=== PATIENT | female | born 1980 | race Caucasian/White ===

== ENCOUNTER 2016-11-07 10:39 | Day surgery (SDC) | payer OTHER ==
[2016-11-07] MEDS ORDERED: DOXYCYCLINE INJ 100 MG in NS 250 ML IV ONE (11:30)
[2016-11-07] MEDS ORDERED: MIDAZOLAM 2 MG/2 ML VIAL ONE (12:15)
[2016-11-07] MEDS ORDERED: HEMABATE 250 MCG/1 ML AMP IM ONE (12:20)
[2016-11-07] MEDS ORDERED: METHYLERGONOVINE MAL 0.2 MG/ML INJ ONE (12:21)
[2016-11-07] MEDS ORDERED: MISOPROSTOL 200 MCG TAB ONE (12:21)
[2016-11-07] MEDS ORDERED: PROPOFOL/EMULSION 500 MG/50 ML BOTTLE IV ONE (12:25)
[2016-11-07] MEDS ORDERED: fentaNYL 100 MCG/2 ML INJ ONE (12:26)
[2016-11-07] MEDS ORDERED: DEXAMETHASONE 4 MG/ML VIAL ONE ×2 (12:28→12:29)
[2016-11-07] MEDS ORDERED: ONDANSETRON 4 MG/2 ML VIAL ONE (13:11)
[2016-11-07] MEDS ORDERED: LIDOCAINE 2% 5 ML SDV ONE (13:12)
[2016-11-07] MEDS ORDERED: ONDANSETRON 4 MG/2 ML VIAL IVP PRN (13:14)
[2016-11-07] MEDS ORDERED: ACETAMINOPHEN 325 MG TAB PO PRN (13:14)
[2016-11-07] MEDS ORDERED: HYDROCODONE/APAP 5/325 TAB PO PRN (13:14)
[2016-11-07] MEDS ORDERED: LR 1,000 ML IV SCH (13:30)
--- NOTE | 2016-11-07 13:59 | GOP ---
[f rep st] OPERATIVE REPORT DATE OF OPERATION: 11/07/2016 SURGEON: Maddy Cerda MD TEAM LEAD: None. ANESTHESIA: General. PREOPERATIVE DIAGNOSIS: Blighted ovum. POSTOPERATIVE DIAGNOSIS: Blighted ovum. PROCEDURE PERFORMED: Suction dilation and curettage. FINDINGS: 1. Exam under anesthesia revealed an anteverted uterus and no adnexal masses. 1. Intraoperative findings revealed tissue removed from the uterus that appears consistent with pro ducts of conception. 2. SPECIMENS: Uterine contents. ESTIMATED BLOOD LOSS: 50 cc. INDICATIONS: Patient is a 36-year-old 2, para 1, female who presented for her routine 8-wee k confirmation of and was found to have a blighted ovum with a dilated sac measuring 2.3 c m with no visualized yolk sac or pole seen. She chose surgical management with a D and C, aft er counseling regarding all options to include expectant medical and surgical management. DESCRIPTION OF PROCEDURE: The patient was taken to the operating room where general anesthesia was found be adequate. Doxycycline 100 mg IV was administered on-call in the operating room. The [facility] nt was prepared and draped in normal sterile fashion in the dorsal lithotomy position. A weighted s peculum was placed in the patient's vagina and a Dale retractor used to visualize the cervix clearly . The cervix was then gently dilated up to 7 mm using Hegar dilators with no immediate complication s. A 7 mm rigid curved suction curette was then attached to the suction tubing and the pressure was noted to be adequate at 50 mmHg. The curette was gently advanced into the cervix and into the uter ine cavity and then rotated to remove all tissue and products of conception. The suction curette wa s then removed and a sharp curette was placed gently into the cervix into the uterine cavity. A sha rp curettage was performed circumferentially with a gritty texture noted. There seemed to be some a jamari at this time with a little bit of loss of resistance and deeper sounding of the uterus, so a do se of Methergine was administered and ultrasound was performed abdominally for further evaluation. There was no free fluid and the remaining period of sharp curettage was done under ultrasound guidan ce, and the curette was clearly visualized within the uterine cavity, and there was resistance felt and no loss of resistance to be concerning for a uterine perforation. A repeat suction curettage wa s then performed under ultrasound guidance, and there was no further blood or tissue that came to th e suction curette. The curette was removed and there was no active bleeding. The tenaculum was the n removed and hemostasis was obtained with silver nitrate. All sponge and lap counts were correct x2. Patient was transferred back in stable and good conditio n. COMPLICATIONS: None. IV FLUIDS: 900 cc. URINE OUTPUT: None, as she voided immediately prior to procedure. DRAINS: None. /[id number]/MODL
== END 2016-11-07 15:15 | disposition home or self-care (01) ==
LOC: FOBOP 10:39
PROVIDERS: ATTEND Obstetrics & Gynecology
PROC: 10D17ZZ Extraction of Products of Conception, Retained, Via Natural or Artificial Opening (ICD-10-PCS; principal; 2016-11-07)
DX: O02.0 Blighted ovum and nonhydatidiform mole (principal); E03.9 Hypothyroidism, unspecified
CPT/HCPCS: J1100; J2210; J2250; J2405; J2704; J3010

== ENCOUNTER → 2017-05-23 | Outpatient (CLI) | payer OTHER | LOC: FIMAGING 08:16 | PROVIDERS: ATTEND Obstetrics & Gynecology | DX: O09.522 Supervision of elderly multigravida, second trimester (principal); Z3A.20 20 weeks gestation of pregnancy ==